=== PATIENT | female | born 1995 | race Two or more races ===

== ENCOUNTER 2017-01-15 15:49 | Emergency (ER) | payer SELFPAY ==
[~2017-01-15] VITALS: Ht 160 cm; Wt 113.4 kg
[2017-01-15 16:11] LABS: BILIRUBIN,URINE NEGATIVE (NEG); GLUCOSE,URINE NEGATIVE (NEG); NITRITE,URINE NEGATIVE (NEG); PROTEIN,URINE NEGATIVE (NEG-TRACE); UROBILINOGEN,URINE 0.2 mg/dL (0.2 mg/dL)
[2017-01-15 16:17] LABS: BACTERIA,URINE 0 /HPF (0-FEW); SQUAMOUS EPITHELIAL CELL,UR FEW /LPF; WBC,URINE 0 /HPF (0-4)
[2017-01-15 16:35] LABS: BASO % 0 % (0-3); EOS % 1 % (0-3); HEMATOCRIT 40.5 % (36.0-47.0); HEMOGLOBIN 13.5 g/dL (12.0-15.5); LYMPH # 2.5 x10^3/uL (1.0-4.8); LYMPH % 27 % (24-48); MEAN CORPUSCULAR HEMOGLOBIN 28 pg (25-35); MEAN CORPUSCULAR HGB CONC 33 g/dL (31-37); MEAN CORPUSCULAR VOLUME 85 fL (79-100); MONO % 4 % (0-9); NEUT % 68 % (31-73); PLATELET COUNT 262 x10^3/uL (140-400); RED BLOOD COUNT 4.79 x10^6/uL (3.50-5.40); RED CELL DISTRIBUTION WIDTH 14.3 % (11.5-14.5)
--- NOTE | 2017-01-15 16:52 | RAD ---
EXAM: Obstetric sonogram. HISTORY: Vaginal spotting. TECHNIQUE: Transabdominal and transvaginal imaging of the pelvis was performed. COMPARISON: None. FINDINGS: The uterus measures 9.5 x 4.5 x 5.4 cm. There is a single intrauterine gestational sac with yolk sac. The mean sac diameter is 1.06 cm, corresponding with a gestational age of 5 weeks and 6 days. The yolk sac is normal in size. No pole is seen. There is a subchorionic hematoma inferior to the gestational sac measuring 1.5 x 0.5 cm in maximum dimension. Right ovary is normal in size and demonstrates normal blood flow. The left ovary is obscured due to bowel gas. IMPRESSION: 1. Single intrauterine gestational sac with a mean sac diameter corresponding with a gestational age of 5 weeks and 6 days. No pole is seen. This can be due to early gestational age. Short-term follow-up can be performed to confirm viability. 2. Small subchorionic hematoma measuring 1.5 cm in maximum dimension. 3. Nonvisualization of the left ovary.
[2017-01-15 17:18] LABS: CREATININE 0.6 mg/dL (0.6-1.0); GFR 127.5; POTASSIUM 3.5 mmol/L (3.5-5.1)
[2017-01-15 17:24] LABS: ALBUMIN 3.5 g/dL (3.4-5.0); ALBUMIN/GLOBULIN RATIO 0.9 (1.0-1.7); TOTAL BILIRUBIN 0.9 mg/dL (0.2-1.0); TOTAL PROTEIN 7.2 g/dL (6.4-8.2)
--- NOTE | 2017-01-15 17:43 | PHYS DOC ---
Past Medical History Past Medical History: No Pertinent History Past Surgical History: No Surgical History Alcohol Use: None Drug Use: None Adult General Chief Complaint Chief Complaint: VAGINAL BLEEDING HPI HPI Patient is a 21 year old female who is 2 para 1. Severe today complaining of vaginal spotting for one week. Patient reports that she's been having vaginal spotting however today her spotting was slightly increased and darker in color so she came to the ER. Patient reports that she saw her TOY CONSULTANT doctor yesterday and he did an ultrasound and told her that it was a very early and he was not able to see a definite baby as of yet however there were signs of the baby in the uterus. She was told that her was approximately 5 weeks by her TOY CONSULTANT doctor. She has a follow-up scheduled in 2 weeks. Patient denies any other past medical history. Patient has any history of hypertension diabetes liver lumg or kidney problems. Patient denies any tobacco alcohol or drugs. Patient has no known drug allergies. Patient denies any abdominal pain whatsoever. Patient denies any fevers shakes chills nausea vomiting diarrhea that's out of the ordinary for her during her . Patient denies any dysuria frequency or urgency. Patient has any chest pain or shortness of breath. Patient reports that since she's been in the ER her bleeding has come back to its spotting that she had seen her doctor for. Patient reports that she has used less than one pad in the last 24 hours. Review of systems Constitutional: Denies fever or chills Eyes: Denies change in visual acuity, redness, or eye pain All other review systems are negative except as documented in the history of present illness portion. Physical exam Constitutional: Well developed, well nourished, no acute distress, non-toxic appearance. HENT: Normocephalic, atraumatic, bilateral external ears normal, oropharynx moist, no oral exudates, nose normal. Eyes: conjunctiva normal, no discharge. Neck: Normal range of motion, no tenderness, supple, no stridor. Cardiovascular:Heart rate regular rhythm, Lungs & Thorax: Bilateral breath sounds clear to auscultation Abdomen: Bowel sounds normal, soft, no tenderness, no masses, no pulsatile masses. Skin: Warm, dry, Back: No tenderness, Extremities: No tenderness, no cyanosis, Neurologic: Alert and oriented X 3, normal motor function, normal sensory function, no focal deficits noted. Psychologic: Affect normal, judgement normal, mood normal. Assessment and plan This is a 21-year-old female who presents to the ER today with vaginal bleeding. Patient is presently 5 weeks by ultrasound. Patient reports her last period was October 22, 2016. Patient reports that she had mother. Approximately November 17 that only lasted for 2 days. Patient is currently being followed up by her TOY CONSULTANT doctor and he is scheduled her for repeat ultrasound in 2 weeks. Patient had basic labs in the ED today which were all within normal limits. Patient's UA did not reveal any infections. Patient had an ultrasound today which revealed a possible early IUP approximately 5 weeks gestation however the possibility of an ectopic by ultrasound has not been completely excluded. This has been relayed to the patient. The patient is clinically and hemodynamically stable at this time to be discharged home with resuming her follow-up with her TOY CONSULTANT doctor as scheduled. Patient was given return precautions regarding increasing pain or vaginal bleeding. Patient understands and is very agreeable to this plan. CBC, CMP, UA, pelvic ultrasound all within normal limits. Patient is too early for Rh but she reports that she believes she is A+ and has not received RhoGAM in the past. Allergies Allergies Allergies Coded Allergies Type Severity Reaction Last Updated Verified No Known Drug Allergies 01/15/17 No Current Patient Data Vital Signs Vital Signs Date Time Temp Pulse Resp B/P (MAP) Pulse Ox O2 Delivery O2 Flow Rate FiO2 01/15/17 16:00 98.4 96 20 153/71 (98) 96 Room Air 98.4 Lab Values Laboratory Tests Test 01/15/17 15:58 01/15/17 16:05 01/15/17 16:28 Urine Collection Type Unknown Urine Color Yellow Urine Clarity Clear Urine pH 6.0 Urine Specific [place] 1.020 Urine Protein Negative mg/dL (NEG-TRACE) Urine Glucose (UA) Negative mg/dL (NEG) Urine Ketones (Stick) 15 mg/dL (NEG) Urine Blood Large (NEG) Urine Nitrite Negative (NEG) Urine Bilirubin Negative (NEG) Urine Urobilinogen Dipstick 0.2 mg/dL (0.2 mg/dL) Urine Leukocyte Esterase Negative (NEG) Urine RBC 3-5 /HPF (0-2) Urine WBC 0 /HPF (0-4) Urine Squamous Epithelial Cells Few /LPF Urine Bacteria 0 /HPF (0-FEW) Urine Mucus Mod /LPF POC Urine HCG, Qualitative Hcg positive (Negative) White Blood Count 9.0 x10^3/uL (4.0-11.0) Red Blood Count 4.79 x10^6/uL (3.50-5.40) Hemoglobin 13.5 g/dL (12.0-15.5) Hematocrit 40.5 % (36.0-47.0) Mean Corpuscular Volume 85 fL (79-100) Mean Corpuscular Hemoglobin 28 pg (25-35) Mean Corpuscular Hemoglobin Concent 33 g/dL (31-37) Red Cell Distribution Width 14.3 % (11.5-14.5) Platelet Count 262 x10^3/uL (140-400) Neutrophils (%) (Auto) 68 % (31-73) Lymphocytes (%) (Auto) 27 % (24-48) Monocytes (%) (Auto) 4 % (0-9) Eosinophils (%) (Auto) 1 % (0-3) Basophils (%) (Auto) 0 % (0-3) Neutrophils # (Auto) 6.1 x10^3uL (1.8-7.7) Lymphocytes # (Auto) 2.5 x10^3/uL (1.0-4.8) Monocytes # (Auto) 0.4 x10^3/uL (0.0-1.1) Eosinophils # (Auto) 0.1 x10^3/uL (0.0-0.7) Basophils # (Auto) 0.0 x10^3/uL (0.0-0.2) Sodium Level 139 mmol/L (136-145) Potassium Level 3.5 mmol/L (3.5-5.1) Chloride Level 103 mmol/L (98-107) Carbon Dioxide Level 26 mmol/L (21-32) Anion Gap 10 (6-14) Blood Urea Nitrogen 6 mg/dL (7-20) L Creatinine 0.6 mg/dL (0.6-1.0) Estimated GFR (Cockcroft-Gault) 127.5 BUN/Creatinine Ratio 10 (6-20) Glucose Level 91 mg/dL (70-99) Calcium Level 9.0 mg/dL (8.5-10.1) Total Bilirubin 0.9 mg/dL (0.2-1.0) Aspartate Amino Transferase (AST) 25 U/L (15-37) Alanine Aminotransferase (ALT) 51 U/L (14-59) Alkaline Phosphatase 74 U/L (46-116) Total Protein 7.2 g/dL (6.4-8.2) Albumin 3.5 g/dL (3.4-5.0) Albumin/Globulin Ratio 0.9 (1.0-1.7) L Laboratory Tests 01/15/17 16:28 Laboratory Tests 01/15/17 16:28 EKG EKG [] Radiology/Procedures Radiology/Procedures [] Course & Med Decision Making Course & Med Decision Making Pertinent Labs and Imaging studies reviewed. (See chart for details) [] Dragon Disclaimer Dragon Disclaimer This electronic medical record was generated, in whole or in part, using a voice recognition dictation system. Departure Departure Impression: Primary Impression: Vaginal bleeding in Additional Impression: Threatened miscarriage Disposition: 01 HOME, SELF-CARE Condition: IMPROVED Referrals: TESFAYE MICHAEL APRN (PCP) Patient Instructions: Threatened Miscarriage Additional Instructions: Please follow up with your TOY CONSULTANT doctor as discussed with him. Return to the ER if you have any questions concerns or increasing symptoms. Problem Qualifiers ROSALINDA CHAMBERS MD Jan 15, 2017 17:43
[2017-01-15 17:50] VITALS: BP 128/69
== END 2017-01-15 17:55 | disposition home or self-care (01) ==
LOC: ER 15:49
DX: O20.0 Threatened abortion (principal); Z3A.01 Less than 8 weeks gestation of pregnancy
CPT/HCPCS: 36415; 76801; 76817; 80053; 81001; 81025; 84702; 85025; 99285-25

== ENCOUNTER 2017-06-25 10:57 | Emergency (ER) | payer OTHER ==
[2017-06-25 11:15] LABS: URINE HCG POC HCG POSITIVE (Negative)
[2017-06-25 11:23] LABS: BILIRUBIN,URINE NEGATIVE (NEG); CLARITY,URINE CLEAR; COLOR,URINE YELLOW; GLUCOSE,URINE NEGATIVE (NEG); NITRITE,URINE NEGATIVE (NEG); PH,URINE 6.5; PROTEIN,URINE NEGATIVE (NEG-TRACE); UROBILINOGEN,URINE 0.2 mg/dL (0.2 mg/dL)
[2017-06-25 11:35] LABS: BACTERIA,URINE 0 /HPF (0-FEW); SQUAMOUS EPITHELIAL CELL,UR FEW /LPF; WBC,URINE 0 /HPF (0-4)
[2017-06-26 14:32] LABS: CHLAMYDIA PROBE Negative (Negative); GC PROBE Negative (Negative)
== END 2017-06-25 14:14 | disposition home or self-care (01) ==
LOC: ER 10:57
DX: O20.0 Threatened abortion (principal); Z3A.01 Less than 8 weeks gestation of pregnancy
CPT/HCPCS: 36415; 76801; 76817; 81001; 81025; 84702; 86850; 86900; 86901; 87491; 87591; 99285-25; Q0111

== ENCOUNTER → 2018-02-24 | Outpatient (CLI) | payer OTHER ==
[2017-06-25 14:13] VITALS: BP 170/84
[~2018-02-24] MED LIST: PREN1TAB58 PO
--- NOTE | 2018-02-24 17:03 | RAD ---
Obstetrical ultrasound, 02/24/2018: HISTORY: Uterine size/date discrepancy There is a single intrauterine fetus in a cephalic orientation. The biparietal diameter measures 4.3 cm compatible with a gestational age of 19 weeks. This corresponds well to the other measurements and yields an average gestational age of 19 weeks and 3 days and a sonographic EDC of 07/19/2018. Normal activity and heart motion were seen. The heart rate is 153 bpm. A four-chamber heart is evident. Fluid is evident in the bladder and stomach. The visualized portions of the kidneys and spine are unremarkable. A three-vessel umbilical cord is identified with a normal cord insertion site. The placenta lies posteriorly extending into the fundal region. There is no evidence of a placenta previa. A normal amount of amniotic fluid is evident. The cervical length was estimated at 5.0 cm. The maternal ovaries were not visualized. IMPRESSION: Single viable intrauterine fetus of 19-20 weeks gestational age as described above. Electronically signed by: Chris Irene MD (02/24/2018 5:00 PM) [facility]
== END | disposition home or self-care (01) ==
LOC: US 10:52
PROVIDERS: ATTEND Obstetrics & Gynecology
DX: O26.842 Uterine size-date discrepancy, second trimester (principal); Z3A.20 20 weeks gestation of pregnancy
CPT/HCPCS: 76805

== ENCOUNTER 2018-03-09 10:41 | Day surgery (SDC) | payer OTHER ==
[~2018-03-09] VITALS: Ht 160 cm; Wt 113.4 kg
[~2018-03-09 10:41] MED LIST changes: +ASPI-630 PO; +BUPIVACAINE MPF 0.5% 30 ML VIAL. ONE; +HYDR-3164 PO; +HYDROmorphone 2 MG/ML VIAL IV PRN; +IV RINGERS,LACTATED 1000ML 1,000 ML IV SCH; +LIDOCAINE 1% PF 2 ML VIAL. ID PRN; +LIDOCAINE 1% PF 30 ML VIAL. ONE; +MORPHINE SULFATE 2 MG/ML VIAL. IV PRN; +PROPOFOL 50 ML IV ONE; +fentaNYL PF VIAL 100 MCG/2 ML VIAL IV PRN; +fentaNYL PF VIAL 100 MCG/2 ML VIAL ONE
--- NOTE | 2018-03-09 11:10 | DISCH ---
DISCHARGE INSTRUCTIONS Condition on Discharge Condition on Discharge: Stable Activity After Discharge Activity Instructions for Disc: Activity as tolerated, Other, see below Bathing Instructions: Shower-keep dressing dry Lifting Instructions after Dis: No heavy lifting, No pulling or pushing, Do not lift >10 pounds Exercise Instruction after Dis: Walk 15 min, 3 x per day Driving Instructions after Dis: Do not drive today Weight Bearing Status after Di: Non weight bearing Diet after Discharge Diet after Discharge: Regular Wound Incision Care Wound/Incision Care: Ice to area for comfort, Keep wound/cast CDI, Keep wound elevated, Do not change dressing Contacting the DRMalachi after DC Call your doctor for: Concerns you may have Follow-Up Follow up with: Maurice in 2 wks Follow Up With: Darrell with any concerns Treatment/Equipment after DC Adaptive Equipment Issued: None JULISSA BLACK II, MD Mar 09, 2018 11:10
[2018-03-09] MEDS ORDERED: PROPOFOL 50 ML IV ONE (12:26)
--- NOTE | 2018-03-09 13:08 | PDOC4 ---
Operative Note Operative Note Date of procedure: 03/09/2018 Surgeon: Wesley Black Technical Program Manager: Estee Bhatia, certified technician specialist Preoperative diagnosis: #1 Closed, displaced, right ankle fracture dislocation #2 right ankle syndesmotic injury Postoperative diagnosis: Same Procedure performed: #1 open reduction internal fixation right distal fibula #2 open reduction internal fixation right syndesmotic injury Anesthesia: Spinal Tourniquet time: less than 70 min Blood loss: 10mL Complications: none Components inserted: Hoff [employer] Nephew 7 hole distal fibula locking plate, 3.5 screw for synesmotic fixation Findings: Acute ankle fracture and syndesmotic disruption Reason for procedure: Patient is a very pleasant young female who is 20 weeks . She suffered a twisting injury and was seen in an outside emergency department. She was referred to myself for definitive management. I discussed the risks, benefits, and alternatives, especially with focus on her , to the above surgery. I discussed her care with her mask design engineer as well as anesthesia prior to surgery. I reviewed her case with my colleague as well. She elected to proceed with surgery. Description of procedure: Patient was greeted in the preoperative area by myself for the correct extremity was verified and marked her to secure the operative suite and antibiotics started and row. Once in the OR she had successful placement of a spinal anesthetic by the anesthesiology team. She was then laid gently supine on the bed, had a padded under her right hip. Splint was taken down and chlorhexidine pre-scrub performed. She had a tourniquet taped in place to right upper thigh. We proceeded prep and drape right lower extremity in our usual sterile fashion and conducted our standard preoperative timeout. I then palpated and marked surface anatomy. I then made a straight lateral incision over her distal fibula centered over the fracture site. I incised skin with a scalpel and dissected subcutaneous tissues tissue with Metzenbaums. Bleeders were cauterized with electrocautery. Fascia was incised in line with the skin incision. I used a periosteal elevator to expose the fibula proximally and distally to the fracture site in anticipation my plate application. I debrided the fracture site with a small curet, metal-tip sucker and dental pick. I used a [id number] in and some direct digital pressure to facilitate reduction. I then checked my x-rays of ankle and syndesmosis. After this, I provisionally placed my plate against bone and sized and checked it under biplanar fluoroscopy. I then secured the plate to the bone with a nonlocking screw above and below the fracture site. I filled the remainder of the holes, using locking screws distally. I left a hole open in anticipation of syndesmotic fixation. I then studied this under fluoroscopy and performed an external rotation stress test. I then used a large periarticular clamp through a stab incision medially and against my plate to facilitate reduction and stabilization of the syndesmosis and placed a 3.5 mm screw across 4 cortices. After this, I checked images again I was happy with hardware position and fracture reduction. I then irrigated out the operative field thoroughly. I closed the stab incision medially with simple interrupted 3-0 nylon. #1 Vicryl in a simple and [id number] fashion was used to close fascia. I then reapproximated subcutaneous tissue with inverted interrupted 2-0 Vicryl followed by 3-0 nylon in a vertical mattress fashion for skin. I injected local anesthetic around the area. Prior to wound closure, all counts correct 2. The right lower extremity was cleansed and dried and a sterile dressing was applied to each side. A well-padded AO splint was then fashioned. Patient tolerated surgery well. At the conclusion, she was awakened from her sedation and transferred gently supine to the recovery room cart and taken to PACU in a stable and extubated condition. heart monitoring was performed. From my standpoint she will be discharged home, nonweightbearing, shell follow up with me in 2 weeks. I discussed postoperative care with her family and answered their questions. I will see her back in 2 weeks, sooner should a problem arise WESLEY BLACK II, MD Mar 09, 2018 13:08
[2018-03-09 16:40] VITALS: BP 131/59
== END 2018-03-09 17:00 | disposition home or self-care (01) ==
LOC: SURG 10:41
PROVIDERS: ATTEND Orthopaedic Surgery Sports Medicine
DX: S82.61XA Displaced fracture of lateral malleolus of right fibula, initial encounter for closed fracture (principal); S93.439A Sprain of tibiofibular ligament of unspecified ankle, initial encounter; X58.XXXA Exposure to other specified factors, initial encounter; Y93.89 Activity, other specified; Y92.89 Other specified places as the place of occurrence of the external cause; Y99.8 Other external cause status; E78.00 Pure hypercholesterolemia, unspecified; K21.9 Gastro-esophageal reflux disease without esophagitis; E66.9 Obesity, unspecified; E03.9 Hypothyroidism, unspecified; Z98.890 Other specified postprocedural states; Z79.899 Other long term (current) drug therapy; Z79.82 Long term (current) use of aspirin
CPT/HCPCS: 27792; 27829; 76000; C1713; J0690; J2704; J3010; J3490; J7120

== ENCOUNTER 2018-06-01 06:59 | Day surgery (SDC) | payer MEDICAID, OTHER ==
[~2018-06-01] VITALS: Ht 160 cm; Wt 117.9 kg
[~2018-06-01 06:59] MED LIST changes: -BUPIVACAINE MPF 0.5% 30 ML VIAL. ONE; -HYDROmorphone 2 MG/ML VIAL IV PRN; -IV RINGERS,LACTATED 1000ML 1,000 ML IV SCH; -LIDOCAINE 1% PF 2 ML VIAL. ID PRN; -LIDOCAINE 1% PF 30 ML VIAL. ONE; -MORPHINE SULFATE 2 MG/ML VIAL. IV PRN; -PROPOFOL 50 ML IV ONE; -fentaNYL PF VIAL 100 MCG/2 ML VIAL IV PRN; -fentaNYL PF VIAL 100 MCG/2 ML VIAL ONE
[2018-06-01] MEDS ORDERED: IV RINGERS,LACTATED 1000ML 1,000 ML IV SCH (07:00)
[2018-06-01] MEDS ORDERED: HYDROmorphone 2 MG/ML VIAL IV PRN (07:00)
[2018-06-01] MEDS ORDERED: ONDANSETRON PF 4 MG/2 ML VIAL. IV PRN (07:00)
[2018-06-01] MEDS ORDERED: fentaNYL PF VIAL 100 MCG/2 ML VIAL IV PRN ×2 (07:00)
[2018-06-01] MEDS ORDERED: MORPHINE SULFATE 4 MG/ML VIAL. IV PRN (07:00)
[2018-06-01] MEDS ORDERED: LIDOCAINE 1% PF 2 ML VIAL. ID PRN (07:00)
[2018-06-01] MEDS ORDERED: PROCHLORPERAZINE 10 MG/2 ML VIAL. IV PRN (07:00)
[2018-06-01] MEDS ORDERED: LIDOCAINE 1% PF 30 ML VIAL. ONE (07:09)
[2018-06-01] MEDS ORDERED: BUPIVACAINE MPF 0.5% 30 ML VIAL. ONE (07:10)
[2018-06-01] MEDS ORDERED: BUPIVACAINE MPF 0.75% DEXTROSE 2 ML AMPUL. INJ ONE (07:30)
[2018-06-01] MEDS ORDERED: 0.9 % SODIUM CHLORIDE 20 ML VIAL. IJ ONE (08:22)
[2018-06-01] MEDS ORDERED: ONDANSETRON PF 4 MG/2 ML VIAL. ONE (08:25)
[2018-06-01] MEDS ORDERED: FAMOTIDINE 20 MG/2 ML VIAL ONE (08:25)
--- NOTE | 2018-06-01 08:52 | DISCH ---
DISCHARGE INSTRUCTIONS Condition on Discharge Condition on Discharge: Stable Activity After Discharge Activity Instructions for Disc: Activity as tolerated, Other, see below Bathing Instructions: Shower-keep dressing dry Lifting Instructions after Dis: No heavy lifting, No pulling or pushing, Do not lift >10 pounds Exercise Instruction after Dis: Walk 15 min, 3 x per day Driving Instructions after Dis: Do not drive today Weight Bearing Status after Di: As tolerated, Non weight bearing Diet after Discharge Diet after Discharge: Regular Wound Incision Care Wound/Incision Care: Ice to area for comfort, Keep wound/cast CDI, Keep wound elevated, Change dressing, Do not change dressing Contacting the DRMalachi after DC Call your doctor for: Concerns you may have Follow-Up Follow up with: Maurice in 2 wks Follow Up With: Darrell for any concerns regarding movements/ Treatment/Equipment after DC Adaptive Equipment Issued: None JULISSA BLACK II, MD Jun 01, 2018 08:52
--- NOTE | 2018-06-01 08:53 | PDOC4 ---
Operative Note Operative Note Date of procedure: 06/01/2018 Surgeon: Wesley Sprague.: Estee Bhatia, certified tower climber, necessary to assist with positioning, prepping and draping, retracting for exposure, and closing wound. Preoperative diagnosis: Right ankle fracture status post ORIF Right ankle syndesmotic disruption, status post ORIF Postoperative diagnosis: Same Procedure performed: Removal syndesmotic screw from right ankle Anesthesia: Spinal Findings: Stable ankle to external rotation stress test Complications: none Blood loss: 2 mL Tourniquet time: 10 min Reason for procedure: Patient is a very pleasant third trimester woman who underwent ORIF of her right ankle fracture and syndesmotic disruption with myself about 3 months ago. We have discussed the risks, benefits, alternatives and discussed this procedure with her distributor cleaner. Description of procedure: Patient was greeted in the preoperative holding area by myself for the correct extremity was verified and marked. She is taken back to the operative suite where she had successful placement of a spinal anesthetic. She was laid gently supine and secured to bed with all pressure points padded. Prior to coming back to the operating room, labor and delivery nurses had monitored heart tones. Right lower extremity was then prepped and draped in our usual sterile fashion we conducted our standard preoperative timeout. Coban was used over the forefoot. I then exsanguinated the extremity and wrapped the tourniquet over a towel at the proximal calf and used a hemostat to limp to itself for a tourniquet effect. I then brought in C-arm to localize the location of the syndesmotic screw and made a stab incision overlying this. Electrocautery was used for hemostasis. Small hemostat was used to expose the screw head which was then removed without complication. The area was irrigated with sterile fluid.. Inverted interrupted 2-0 Vicryl was used for fascia and for subcutaneous tissue. 3-0 nylon in mattress fashion was used for skin. About 10 mL of local anesthetic was injected into the sadia-incisional area. The area was cleansed and dried and a sterile dressing was applied. The patient was then transferred gently supine to the recovery room cart and taken to PACU stable and extubated condition. The labor and delivery nurses were called down to perform heart monitoring. Postoperative plan is to allow weightbearing as tolerated. Wound care and activity were given and written form and discussed with family. She will be discharged home, weightbearing as tolerated. I will see her back in 2 weeks, sooner should a problem arise. WESLEY BLACK II, MD Jun 01, 2018 08:53
[2018-06-01 11:50] VITALS: BP 110/64
== END 2018-06-01 11:50 | disposition home or self-care (01) ==
LOC: SURG 06:59
PROVIDERS: ATTEND Orthopaedic Surgery Sports Medicine
DX: O26.893 Other specified pregnancy related conditions, third trimester (principal); Z47.2 Encounter for removal of internal fixation device; O99.283 Endocrine, nutritional and metabolic diseases complicating pregnancy, third trimester; E03.9 Hypothyroidism, unspecified; E78.5 Hyperlipidemia, unspecified; Z98.890 Other specified postprocedural states; Z79.82 Long term (current) use of aspirin; Z79.899 Other long term (current) drug therapy; Z3A.42 42 weeks gestation of pregnancy
CPT/HCPCS: 20680; 76000; J0690; J2405; J3490; J7120

== ENCOUNTER 2018-06-02 19:53 | Observation (INO) | payer OTHER ==
[2018-06-01 11:50] VITALS: BP 110/64
[2018-06-02] MEDS ORDERED: IV RINGERS,LACTATED 1000ML 1,000 ML IV SCH (19:55)
[2018-06-02 20:29] LABS: BILIRUBIN,URINE NEGATIVE (NEG); CLARITY,URINE CLEAR; COLOR,URINE YELLOW; NITRITE,URINE NEGATIVE (NEG); PROTEIN,URINE NEGATIVE (NEG-TRACE); UROBILINOGEN,URINE 0.2 mg/dL (0.2 mg/dL)
[2018-06-02 20:36] LABS: BACTERIA,URINE 0 /HPF (0-FEW); BARBITURATES NEG (NEG); BENZODIAZEPINES NEG (NEG); CANNABINOIDS NEG (NEG); COCAINE NEG (NEG); METHADONE NEG (NEG); OPIATES NEG (NEG); PHENCYCLIDINE NEG (NEG); SQUAMOUS EPITHELIAL CELL,UR MOD /LPF
[2018-06-02 20:37] LABS: AMPHETAMINE/METHAMPHETAMINE NEG (NEG); RBC,URINE 0 /HPF (0-2)
== END 2018-06-02 21:00 | disposition home or self-care (01) ==
LOC: 3 SO LND 19:53
PROVIDERS: ADMIT Obstetrics & Gynecology; ATTEND Obstetrics & Gynecology
DX: O62.9 Abnormality of forces of labor, unspecified (principal); Z3A.33 33 weeks gestation of pregnancy
CPT/HCPCS: 80307; 81001; G0379

== ENCOUNTER 2018-06-26 19:09 | Observation (INO) | payer MEDICAID ==
[2018-06-26] MEDS ORDERED: IV RINGERS,LACTATED 1000ML 1,000 ML IV PRN (19:30)
[2018-06-26 20:20] LABS: BILIRUBIN,URINE NEGATIVE (NEG); CLARITY,URINE CLEAR; COLOR,URINE YELLOW; NITRITE,URINE NEGATIVE (NEG); PROTEIN,URINE NEGATIVE (NEG-TRACE)
[2018-06-26 20:25] LABS: BACTERIA,URINE 0 /HPF (0-FEW); RBC,URINE 0 /HPF (0-2); SQUAMOUS EPITHELIAL CELL,UR FEW /LPF; WBC,URINE OCC /HPF (0-4)
[2018-06-26 20:27] LABS: AMPHETAMINE/METHAMPHETAMINE NEG (NEG); BARBITURATES NEG (NEG); BENZODIAZEPINES NEG (NEG); CANNABINOIDS NEG (NEG); COCAINE NEG (NEG); METHADONE NEG (NEG); OPIATES NEG (NEG); PHENCYCLIDINE NEG (NEG)
== END 2018-06-26 21:15 | disposition home or self-care (01) ==
LOC: 3 SO LND 19:09
PROVIDERS: ADMIT Obstetrics & Gynecology; ATTEND Obstetrics & Gynecology
DX: O36.8130 Decreased fetal movements, third trimester, not applicable or unspecified (principal); Z3A.36 36 weeks gestation of pregnancy
CPT/HCPCS: 80307; 81001; 87086; G0378; G0379

== ENCOUNTER 2018-07-08 16:24 | Observation (INO) | payer OTHER ==
[~2018-07-08] VITALS: Ht 160 cm; Wt 125.2 kg
[2018-07-08] MEDS ORDERED: IV RINGERS,LACTATED 1000ML 1,000 ML IV SCH (17:15)
[2018-07-08 17:19] LABS: BILIRUBIN,URINE NEGATIVE (NEG); CLARITY,URINE CLEAR; COLOR,URINE YELLOW; NITRITE,URINE NEGATIVE (NEG); PROTEIN,URINE NEGATIVE (NEG-TRACE); UROBILINOGEN,URINE 0.2 mg/dL (0.2 mg/dL)
[2018-07-08 17:28] LABS: BACTERIA,URINE FEW /HPF (0-FEW); RBC,URINE 0 /HPF (0-2); SQUAMOUS EPITHELIAL CELL,UR MOD /LPF; WBC,URINE 0 /HPF (0-4)
== END 2018-07-08 19:45 | disposition home or self-care (01) ==
LOC: 3 SO LND 16:24
PROVIDERS: ADMIT Obstetrics & Gynecology; ATTEND Obstetrics & Gynecology
DX: O62.9 Abnormality of forces of labor, unspecified (principal); Z3A.38 38 weeks gestation of pregnancy
CPT/HCPCS: 81001; G0378; G0379

== ENCOUNTER 2018-07-10 11:25 | Inpatient (IN) | payer OTHER ==
[~2018-07-10] VITALS: Ht 161.3 cm; Wt 125.2 kg
[2018-07-10] MEDS ORDERED: IV RINGERS,LACTATED 1000ML 1,000 ML IV SCH ×2 (12:06→15:04)
[2018-07-10 12:30] LABS: BILIRUBIN,URINE NEGATIVE (NEG); CLARITY,URINE CLEAR; COLOR,URINE YELLOW; NITRITE,URINE NEGATIVE (NEG); PROTEIN,URINE NEGATIVE (NEG-TRACE)
[2018-07-10 12:43] LABS: BACTERIA,URINE 0 /HPF (0-FEW); RBC,URINE 0 /HPF (0-2); SQUAMOUS EPITHELIAL CELL,UR MOD /LPF; WBC,URINE OCC /HPF (0-4)
[2018-07-10] MEDS ORDERED: ONDANSETRON PF 4 MG/2 ML VIAL. IV PRN ×2 (15:15→18:45)
[2018-07-10] MEDS ORDERED: TERBUTALINE 1 MG/ML VIAL. SQ PRN (15:15)
[2018-07-10] MEDS ORDERED: OXYTOCIN 30 UNIT/500 ML PREMIX 500 ML IV PRN ×2 (15:15)
[2018-07-10] MEDS ORDERED: 0.9 % SODIUM CHLORIDE 10 ML DISP.SYRIN. IV PRN (15:15)
[2018-07-10] MEDS ORDERED: LIDOCAINE 1% PF 30 ML VIAL. INJ PRN (15:15)
[2018-07-10] MEDS ORDERED: fentaNYL PF VIAL 100 MCG/2 ML VIAL IV PRN (15:15)
[2018-07-10] MEDS ORDERED: ACETAMINOPHEN 325 MG TABLET. PO PRN (15:15)
--- NOTE | 2018-07-10 15:27 | PDOC1 ---
OB - History Hx of Present Care: Good Care Ultrasounds: Normal mid trimester US Obstetrical Complications: None Medical Complications: None Past Family/Social History * Past Medical, Surgical, Family and Obstetric Histories reviewed from chart. Rubella: Immune RPR/VDRL: Negative GBS Status: Negative HBsAG: Negative OB - Chief Complaint & HPI Date of Admission: Date of Admission: Jul 10, 2018 at 11:25 Chief Complaint/History : 3 Para: 1 EGA: 38 Reason for admission: active labor Admission Nurse Assessment Rev: Yes OB - Admission Exam Physical Exam HEENT: Normal Heart: Regular Rate Lungs: Clear Abdomen: Gravid, Non tender, Soft Extremities: Edema Reflexes: Normal Cervical Dilatation: 3cm Effacement: 75% Station: -3 Membranes: Intact Heart Rate: Normal Accelerations: Accelerations Present Decelerations: No decelerations Contractions on Admission: < 5 Minutes Apart Intensity: Moderate Text A: 38 wks IUP Active labor P: Admit for labor management. RISHI HURST Jr, MD Jul 10, 2018 15:27
[2018-07-10 15:57] LABS: BASO % 0 % (0-3); EOS % 0 % (0-3); HEMATOCRIT 35.8 % (36.0-47.0); HEMOGLOBIN 12.1 g/dL (12.0-15.5); LYMPH # 1.8 x10^3/uL (1.0-4.8); LYMPH % 17 % (24-48); MEAN CORPUSCULAR HEMOGLOBIN 30 pg (25-35); MEAN CORPUSCULAR HGB CONC 34 g/dL (31-37); MEAN CORPUSCULAR VOLUME 89 fL (79-100); MONO # 0.3 x10^3/uL (0.0-1.1); MONO % 3 % (0-9); NEUT # 8.5 x10^3uL (1.8-7.7); NEUT % 80 % (31-73); PLATELET COUNT 252 x10^3/uL (140-400); RED BLOOD COUNT 4.01 x10^6/uL (3.50-5.40); RED CELL DISTRIBUTION WIDTH 13.9 % (11.5-14.5); WHITE BLOOD COUNT 10.7 x10^3/uL (4.0-11.0)
[2018-07-10 17:34] VITALS: BP 121/71
[2018-07-10] MEDS ORDERED: ROPIVacaine 0.2% PF 10 ML VIAL. ONE ×2 (18:43→19:00)
[2018-07-10] MEDS ORDERED: ePHEDrine PF IN SALINE 50 MG/10 ML SYRINGE. IV PRN (18:45)
[2018-07-10] MEDS ORDERED: fentaNYL PF VIAL 100 MCG/2 ML VIAL EPI ONE (18:45)
[2018-07-10] MEDS ORDERED: NALOXONE 0.4 MG/ML VIAL. IV PRN (18:45)
[2018-07-10] MEDS: L&D EPIDURAL SYRINGE 50 ML EPID PRN ×2 (19:14→21:57)
--- NOTE | 2018-07-11 00:06 | PDOC ---
VAGINAL DELIVERY DATE DATE: 07/11/18 TIME: 00:05 : 3 Para: 2 EGA: 38 VAGINAL DELIVERY: VTX VACCUM ASSISTED: No PLACENTA: Spontaneous 12/28 SEX: Female WEIGHT Weight [ 2655 gm] Nuchal Cord: Yes, Times 1 Amniotic Fluid: Clear PAIN: Epidural EPISIOTOMY: No EXTENSION: No EBL 300 ml COMPLICATIONS none CONDITION pt. stable Signs of Intrauterine Infectio: None Shoulder Dystocia: No RISHI HURST Jr, MD Jul 11, 2018 00:06
[2018-07-11] MEDS ORDERED: ACETAMINOPHEN 325 MG TABLET. PO PRN (00:15)
[2018-07-11] MEDS ORDERED: MAG HYDROX/ALUMINUM HYD/SIMETH 30 ML ORAL.SUSP PO PRN (00:15)
[2018-07-11] MEDS ORDERED: PHENYLEPH/MINERAL OIL/PETROLAT RECTAL OINTMENT 28GM TUBE. RC PRN (00:15)
[2018-07-11] MEDS ORDERED: ZOLPIDEM 5 MG TABLET. PO PRN (00:15)
[2018-07-11] MEDS ORDERED: MAGNESIUM HYDROXIDE 2,400 MG/30 ML ORAL.SUSP. PO PRN (00:15)
[2018-07-11] MEDS ORDERED: diphenhydrAMINE HCL 25 MG CAPSULE PO PRN (00:15)
[2018-07-11] MEDS ORDERED: oxyCODONE/APAP 5/325 1 TAB TABLET PO PRN (00:15)
[2018-07-11] MEDS ORDERED: HYDROCORTISONE 1% TOPICAL OINTMENT 30GM TUBE. TP PRN (00:15)
[2018-07-11] MEDS ORDERED: 0.9 % SODIUM CHLORIDE 10 ML DISP.SYRIN. IV PRN (00:15)
[2018-07-11] MEDS ORDERED: BENZOCAINE 20% TOPICAL AEROSOL SPRAY 57GM CAN. TP PRN (00:15)
[2018-07-11] MEDS ORDERED: OXYTOCIN 30 UNIT/500 ML PREMIX 500 ML IV PRN (00:15)
[2018-07-11] MEDS ORDERED: MMR per PROTOCOL. MC PRN (00:15)
[2018-07-11] MEDS ORDERED: SIMETHICONE 80 MG TAB.CHEW PO PRN (00:15)
[2018-07-11] MEDS: DOCUSATE SODIUM 100 MG CAPSULE. PO PRN (08:13)
[2018-07-11] MEDS: IBUPROFEN 400 MG TABLET. PO PRN ×2 (08:13→21:18)
[2018-07-11 13:00] VITALS: BP 121/68
[2018-07-11 13:57] VITALS: BP 113/71
--- NOTE | 2018-07-11 16:14 | PDOC ---
OB Progress Note Date of Service 07/11/18 Time of Evaluation 1610 Notes Pt. feeling well. Pain controlled. No complaints. Lab Laboratory Tests Test 07/10/18 12:00 07/10/18 15:20 Urine Collection Type Unknown Urine Color Yellow Urine Clarity Clear Urine pH 7.0 Urine Specific [place] 1.015 Urine Protein Negative mg/dL (NEG-TRACE) Urine Glucose (UA) Negative mg/dL (NEG) Urine Ketones (Stick) Negative mg/dL (NEG) Urine Blood Negative (NEG) Urine Nitrite Negative (NEG) Urine Bilirubin Negative (NEG) Urine Urobilinogen Dipstick 1.0 mg/dL (0.2 mg/dL) Urine Leukocyte Esterase Small (NEG) Urine RBC 0 /HPF (0-2) Urine WBC Occ /HPF (0-4) Urine Squamous Epithelial Cells Mod /LPF Urine Bacteria 0 /HPF (0-FEW) Urine Mucus Slight /LPF White Blood Count 10.7 x10^3/uL (4.0-11.0) Red Blood Count 4.01 x10^6/uL (3.50-5.40) Hemoglobin 12.1 g/dL (12.0-15.5) Hematocrit 35.8 % (36.0-47.0) Mean Corpuscular Volume 89 fL (79-100) Mean Corpuscular Hemoglobin 30 pg (25-35) Mean Corpuscular Hemoglobin Concent 34 g/dL (31-37) Red Cell Distribution Width 13.9 % (11.5-14.5) Platelet Count 252 x10^3/uL (140-400) Neutrophils (%) (Auto) 80 % (31-73) Lymphocytes (%) (Auto) 17 % (24-48) Monocytes (%) (Auto) 3 % (0-9) Eosinophils (%) (Auto) 0 % (0-3) Basophils (%) (Auto) 0 % (0-3) Neutrophils # (Auto) 8.5 x10^3uL (1.8-7.7) Lymphocytes # (Auto) 1.8 x10^3/uL (1.0-4.8) Monocytes # (Auto) 0.3 x10^3/uL (0.0-1.1) Eosinophils # (Auto) 0.0 x10^3/uL (0.0-0.7) Basophils # (Auto) 0.0 x10^3/uL (0.0-0.2) Treponema pallidum Antibody Nonreactive (Nonreactive) Medications Current Medications Ringer's Solution 1,000 ml @ 125 mls/hr Q8H IV Last administered on 07/10/18at 17:46; Start 07/10/18 at 12:06 Sodium Chloride (Normal Saline Flush) 3 ml QSHIFT PRN IV AFTER MEDS AND BLOOD DRAWS; Start 07/10/18 at 15:15 Ringer's Solution 1,000 ml @ 125 mls/hr Q8H IV Last administered on 07/10/18at 19:15; Start 07/10/18 at 15:04 Fentanyl Citrate (Fentanyl 2ml Vial) 100 mcg PRN Q30MIN PRN IV Severe pain; Start 07/10/18 at 15:15 Acetaminophen (Tylenol) 650 mg PRN Q6HRS PRN PO MILD PAIN / TEMP; Start at 15:15 Ondansetron HCl (Zofran) 4 mg PRN Q4HRS PRN IV NAUSEA/VOMITING; Start 07/10/18 at 15:15 Terbutaline Sulfate (Brethine) 0.25 mg 1X PRN PRN SQ SEE COMMENTS; Start at 15:15; Stop 07/11/18 at 15:14; Status DC Lidocaine HCl (Xylocaine 1% Pf 30ml Vial) 30 ml 1X PRN PRN INJ SEE COMMENTS; Start 07/10/18 at 15:15; Stop 07/12/18 at 15:14 Oxytocin/Sodium Chloride 500 ml @ 0 mls/hr CONT PRN IV SEE I/O RECORD Last administered on 07/10/18at 20:15; Start 07/10/18 at 15:15 Oxytocin/Sodium Chloride 500 ml @ 0 mls/hr CONT PRN PRN IV Post delivery bleeding; Start 07/10/18 at 15:15 Ephedrine Sulfate (ePHEDrine PF IN SALINE SYRINGE) 10 mg PRN Q2MIN PRN IV IF SBP<90; Start 07/10/18 at 18:45 Naloxone HCl (Narcan) 0.04 mg PRN Q1MIN PRN IV SEE COMMENTS; Start 07/10/18 at 18:45 Fentanyl Citrate (Fentanyl 2ml Vial) 100 mcg 1X ONCE EPI Last administered on 07/10/18at 19:14; Start 07/10/18 at 18:45; Stop 07/10/18 at 18:51; Status DC Ropivacaine/ Fentanyl/NS 50 ml @ 14 mls/hr CONT PRN EPID PAIN Last administered on 07/10/18at 21:57; Start 07/10/18 at 18:45 Ondansetron HCl (Zofran) 4 mg PRN Q6HRS PRN IV NAUSEA/VOMITING; Start 07/10/18 at 18:45; Status UNV Ropivacaine (Naropin 0.2%) 10 ml STK-MED ONCE .ROUTE ; Start 07/10/18 at 18:43; Stop 07/10/18 at 18:44; Status DC Sodium Chloride (Normal Saline Flush) 10 ml QSHIFT PRN IV AFTER MEDS AND BLOOD DRAWS; Start 07/11/18 at 00:15 Oxytocin/Sodium Chloride 500 ml @ 62.5 mls/hr CONT PRN IV SEE I/O RECORD; Start 07/11/18 at 00:15; Stop 07/11/18 at 08:14; Status DC Acetaminophen (Tylenol) 650 mg PRN Q6HRS PRN PO MILD PAIN / TEMP; Start at 00:15 Ibuprofen (Motrin) 800 mg PRN Q8HRS PRN PO INFLAMMATION/PAIN PREVENTION Last administered on 07/11/18at 08:13; Start 07/11/18 at 00:15 Docusate Sodium (Colace) 100 mg PRN BID PRN PO CONSTIPATION Last administered on 07/11/18at 08:13; Start 07/11/18 at 00:15 Magnesium Hydroxide (Milk Of Magnesia) 2,400 mg PRN DAILY PRN PO CONSTIPATION; Start 07/11/18 at 00:15 Al Hydroxide/Mg Hydroxide (Mylanta Plus Xs) 30 ml PRN Q4HRS PRN PO HEARTBURN / GAS; Start 07/11/18 at 00:15 Simethicone (Gas-X) 80 mg PRN AFTMEALHC PRN PO GAS / BLOATING; Start 07/11/18 at 00:15 Diphenhydramine HCl (Benadryl) 25 mg PRN Q6HRS PRN PO ITCHING; Start 07/11/18 at 00:15 Benzocaine (Americaine) 1 spray PRN QID PRN TP TOPICAL PAIN; Start 07/11/18 at 00:15 Phenyleph/Shark Oil/Min Oil/Petrol (Preparation H) 1 afua PRN QID PRN RC RECTAL PAIN; Start 07/11/18 at 00:15 Hydrocortisone (Cortaid) 1 afua PRN QID PRN TP PERINEAL PAIN; Start 07/11/18 at 00:15 Ferrous Sulfate (Feosol) 325 mg BIDWMEALS PO ; Start 07/12/18 at 08:00 Zolpidem Tartrate (Ambien) 5 mg PRN QHS PRN PO INSOMNIA, MAY REPEAT X1; Start 07/11/18 at 00:15 Info (Do NOT chart on this placeholder) 1 ea 1X PRN PRN MC SEE COMMENTS; Start 07/11/18 at 00:15 Info (Do NOT chart on this placeholder) 1 ea 1X PRN PRN MC SEE COMMENTS; Start 07/11/18 at 00:15 Oxycodone/ Acetaminophen (Percocet 5/325) 2 tab PRN Q4HRS PRN PO MODERATE PAIN , SEVERE PAIN; Start 07/11/18 at 00:15 Active Scripts Active Vitamins ( Vits W-Ca,Fe,Fa(<1MG)) 1 Each Tablet 1 Tab PO DAILY Reported Aspirin 81 Mg Tab.chew 1 Tab PO DAILY Exam Abd: soft, non tender, fundus firm Assessment PPD#1 s/p Plan of Care: Continue current Tx, Mgmt RISHI HURST Jr, MD Jul 11, 2018 16:14
[2018-07-11 21:15] VITALS: BP 115/72
[2018-07-12 06:24] VITALS: BP 116/80
[2018-07-12 07:12] LABS: BASO # 0.1 x10^3/uL (0.0-0.2); BASO % 1 % (0-3); EOS # 0.1 x10^3/uL (0.0-0.7); EOS % 1 % (0-3); HEMATOCRIT 36.2 % (36.0-47.0); HEMOGLOBIN 12.1 g/dL (12.0-15.5); LYMPH # 2.1 x10^3/uL (1.0-4.8); LYMPH % 22 % (24-48); MEAN CORPUSCULAR HEMOGLOBIN 30 pg (25-35); MEAN CORPUSCULAR HGB CONC 33 g/dL (31-37); MEAN CORPUSCULAR VOLUME 91 fL (79-100); MONO # 0.5 x10^3/uL (0.0-1.1); MONO % 5 % (0-9); NEUT # 6.8 x10^3uL (1.8-7.7); NEUT % 71 % (31-73); PLATELET COUNT 251 x10^3/uL (140-400); RED BLOOD COUNT 3.99 x10^6/uL (3.50-5.40); RED CELL DISTRIBUTION WIDTH 13.7 % (11.5-14.5); WHITE BLOOD COUNT 9.6 x10^3/uL (4.0-11.0)
[2018-07-12] MEDS ORDERED: FERROUS SULFATE 325 MG TABLET. PO SCH (08:00)
[2018-07-12] MEDS: DOCUSATE SODIUM 100 MG CAPSULE. PO PRN (08:24)
[2018-07-12] MEDS: IBUPROFEN 400 MG TABLET. PO PRN (08:24)
--- NOTE | 2018-07-12 13:03 | PDOC3 ---
OB DISCHARGE SUMMARY DATE OF ADMISSION: 07/10/18 DATE OF DISCHARGE: 07/12/18 REASON FOR ADMISSION: Onset of labor INTRAPARTUM PROCEDURES: Spontanous Vag Deliv DISCHARGE DIAGNOSIS: Term Delivered DISCHARGE INFORMATION: Activity (ad munira), Diet (regular), Instructions (pelvic rest x 6 wks) HOSPITAL COURSE Term gestation delivered vaginally without complications. RISHI HURST Jr, MD Jul 12, 2018 13:03
--- NOTE | 2018-07-12 13:04 | DISCH ---
DISCHARGE INSTRUCTIONS Condition on Discharge Condition on Discharge: Stable Activity After Discharge Activity Instructions for Disc: Activity as tolerated, Other, see below Bathing Instructions: Shower-keep dressing dry Lifting Instructions after Dis: No heavy lifting, No pulling or pushing, Do not lift >10 pounds Exercise Instruction after Dis: Walk 15 min, 3 x per day Driving Instructions after Dis: Do not drive today Weight Bearing Status after Di: As tolerated, Non weight bearing Diet after Discharge Diet after Discharge: Regular Wound Incision Care Wound/Incision Care: Ice to area for comfort, Keep wound/cast CDI, Keep wound elevated, Change dressing, Do not change dressing Contacting the DRMalachi after DC Call your doctor for: Concerns you may have Follow-Up Follow up with: Dr. Ramírez in 6 wks. Treatment/Equipment after DC Adaptive Equipment Issued: None RISHI RAMÍREZ Jr, MD Jul 12, 2018 13:04
[2018-07-12] MEDS ORDERED: IBUP-1027 PO (13:05)
[2018-07-12 13:33] VITALS: BP 115/72
== END 2018-07-12 14:27 | disposition home or self-care (01) | DRG 807 ==
LOC: 3 SO LND 11:25 → OBSVTOIN 11:25
PROVIDERS: ADMIT Obstetrics & Gynecology; ATTEND Obstetrics & Gynecology
PROC: 10E0XZZ Delivery of Products of Conception, External Approach (ICD-10-PCS; principal; 2018-07-10)
PROC: 3E0R3BZ Introduction of Anesthetic Agent into Spinal Canal, Percutaneous Approach (ICD-10-PCS; 2018-07-10)
PROC: 3E0R33Z Introduction of Anti-inflammatory into Spinal Canal, Percutaneous Approach (ICD-10-PCS; 2018-07-10)
DX: O69.81X0 Labor and delivery complicated by cord around neck, without compression, not applicable or unspecified (principal); Z37.0 Single live birth; Z3A.38 38 weeks gestation of pregnancy
CPT/HCPCS: 36415; 81001; 85025; 86592; 86850; 86900; 86901; 87086; J2590; J2795; J3010; J7120

== ENCOUNTER → 2019-05-11 | Outpatient (CLI) | payer OTHER ==
[~2019-05-11] MED LIST changes: +IBUP-1027 PO
--- NOTE | 2019-05-12 09:20 | RAD ---
Examination: PREG MORE THAN OR EQ TO 14 WKS History: Uterine size discrepancy Comparison/Correlation: None Findings: Transabdominal ultrasound examination was performed. Exam is limited due to patient body habitus. Single intrauterine gestation with breech lie noted. Placenta is present at the posterior wall fundal level. movement noted. Heart rate is 144 bpm. Three-vessel cord noted. brain, kidneys, spine, and cord insertion are not well delineated due to patient body habitus. Normal quantity of amniotic fluid is present. Amniotic fluid index of 10.9 cm noted. Biparietal diameter is 4.3 cm corresponding to 19 weeks 0 day. History symptoms of 16.59 cm corresponding to 19 weeks 2 days. Abdominal circumference is 14.15 cm corresponding to 19 weeks 4 days. Femur length is 3.17 cm corresponding to 19 weeks 6 days. Head circumference to abdominal circumference ratio is 1.17. Estimated weight is 303 g. Average ultrasound age of 19 weeks 3 days is evident with ultrasound EDC of 10/02/2019. Maternal cervical length is 6.02 cm. Impression: Single living intrauterine gestation with average ultrasound age of 19 weeks 3 days. This is one week greater than clinical age. Breech lie. Electronically signed by: Benitez Whaley MD (05/12/2019 9:18 AM) [facility]
== END | disposition home or self-care (01) ==
LOC: US 13:51
PROVIDERS: ATTEND Obstetrics & Gynecology
DX: O32.1XX0 Maternal care for breech presentation, not applicable or unspecified (principal); Z3A.19 19 weeks gestation of pregnancy
CPT/HCPCS: 76805

== ENCOUNTER 2019-08-30 17:43 | Observation (INO) | payer OTHER ==
[2019-08-30] MEDS ORDERED: IV RINGERS,LACTATED 1000ML 1,000 ML IV SCH (18:25)
[2019-08-30 18:47] LABS: BILIRUBIN,URINE NEGATIVE (NEG); CLARITY,URINE CLEAR; COLOR,URINE YELLOW; NITRITE,URINE NEGATIVE (NEG); PROTEIN,URINE NEGATIVE (NEG-TRACE); UROBILINOGEN,URINE 0.2 mg/dL (0.2 mg/dL)
[2019-08-30 18:48] LABS: BACTERIA,URINE FEW /HPF (0-FEW); RBC,URINE 0 /HPF (0-2); SQUAMOUS EPITHELIAL CELL,UR MOD /LPF; WBC,URINE OCC /HPF (0-4)
== END 2019-08-30 19:00 | disposition home or self-care (01) ==
LOC: 3 SO LND 17:43
PROVIDERS: ADMIT Obstetrics & Gynecology; ATTEND Obstetrics & Gynecology
DX: O36.8130 Decreased fetal movements, third trimester, not applicable or unspecified (principal); Z3A.35 35 weeks gestation of pregnancy
CPT/HCPCS: 81001; G0378; G0379; 59025

== ENCOUNTER 2019-09-13 00:01 | Observation (INO) | payer OTHER ==
[2019-09-13] MEDS ORDERED: ACETAMINOPHEN 325 MG TABLET. PO PRN (00:15)
[2019-09-13 00:41] LABS: BILIRUBIN,URINE NEGATIVE (NEG); CLARITY,URINE CLEAR; COLOR,URINE YELLOW; NITRITE,URINE NEGATIVE (NEG); PH,URINE 6.5 (<5.0-8.0); PROTEIN,URINE NEGATIVE (NEG-TRACE); UROBILINOGEN,URINE 0.2 mg/dL (0.2 mg/dL)
[2019-09-13 00:51] LABS: BACTERIA,URINE FEW /HPF (0-FEW); RBC,URINE OCC /HPF (0-2); SQUAMOUS EPITHELIAL CELL,UR MOD /LPF; WBC,URINE OCC /HPF (0-4)
== END 2019-09-13 01:40 | disposition home or self-care (01) ==
LOC: 3 SO LND 00:01
PROVIDERS: ADMIT Obstetrics & Gynecology; ATTEND Obstetrics & Gynecology
DX: O62.9 Abnormality of forces of labor, unspecified (principal); Z3A.37 37 weeks gestation of pregnancy
CPT/HCPCS: 81001; G0378; G0379

== ENCOUNTER 2019-09-14 14:28 | Observation (INO) | payer OTHER ==
[2019-09-14] MEDS ORDERED: IV RINGERS,LACTATED 1000ML 1,000 ML IV PRN (15:00)
== END 2019-09-14 16:31 | disposition home or self-care (01) ==
LOC: 3 SO LND 14:28
PROVIDERS: ADMIT Obstetrics & Gynecology; ATTEND Obstetrics & Gynecology
DX: O62.9 Abnormality of forces of labor, unspecified (principal); Z3A.37 37 weeks gestation of pregnancy
CPT/HCPCS: G0378; G0379

== ENCOUNTER 2019-09-17 00:54 | Observation (INO) | payer OTHER ==
[2019-09-17] MEDS ORDERED: ACETAMINOPHEN 325 MG TABLET. PO PRN (01:15)
[2019-09-17] MEDS ORDERED: ONDANSETRON PF 4 MG/2 ML VIAL. IVP PRN (01:15)
[2019-09-17] MEDS ORDERED: IV RINGERS,LACTATED 1000ML 1,000 ML IV SCH (01:15)
[2019-09-17 02:03] LABS: BILIRUBIN,URINE NEGATIVE (NEG); CLARITY,URINE CLEAR; COLOR,URINE YELLOW; NITRITE,URINE NEGATIVE (NEG); PROTEIN,URINE NEGATIVE (NEG-TRACE); UROBILINOGEN,URINE 0.2 mg/dL (0.2 mg/dL)
[2019-09-17 02:08] LABS: BACTERIA,URINE FEW /HPF (0-FEW); RBC,URINE 0 /HPF (0-2); SQUAMOUS EPITHELIAL CELL,UR MOD /LPF; WBC,URINE OCC /HPF (0-4)
== END 2019-09-17 03:10 | disposition home or self-care (01) ==
LOC: 3 SO LND 00:54
PROVIDERS: ADMIT Obstetrics & Gynecology; ATTEND Obstetrics & Gynecology
DX: O62.9 Abnormality of forces of labor, unspecified (principal); O26.893 Other specified pregnancy related conditions, third trimester; R11.0 Nausea; Z3A.37 37 weeks gestation of pregnancy
CPT/HCPCS: 81001; G0378; G0379

== ENCOUNTER → 2019-09-25 | Outpatient (CLI) | payer OTHER | END | disposition home or self-care (01) | LOC: LAB 15:21 | PROVIDERS: ATTEND Obstetrics & Gynecology | DX: Z11.59 Encounter for screening for other viral diseases (principal) | CPT/HCPCS: 36415; U0003 ==

== ENCOUNTER 2019-09-28 05:59 | Inpatient (IN) | payer OTHER ==
[~2019-09-28] VITALS: Ht 160 cm; Wt 127.0 kg
[2019-09-28] MEDS ORDERED: OXYTOCIN 30 UNIT/500 ML PREMIX 500 ML IV PRN ×3 (06:15→13:45)
[2019-09-28] MEDS ORDERED: BUTORPHANOL 2 MG/ML VIAL. IVP PRN (06:15)
[2019-09-28] MEDS ORDERED: ACETAMINOPHEN 325 MG TABLET. PO PRN ×2 (06:15→13:45)
[2019-09-28] MEDS ORDERED: TERBUTALINE 1 MG/ML VIAL. SQ PRN (06:15)
[2019-09-28] MEDS ORDERED: IBUPROFEN 400 MG TABLET. PO PRN (06:15)
[2019-09-28] MEDS ORDERED: CITRIC ACID/SODIUM CITRATE 30 ML SOLUTION. PO PRN (06:15)
[2019-09-28] MEDS ORDERED: fentaNYL PF VIAL 100 MCG/2 ML VIAL IVP PRN (06:15)
[2019-09-28] MEDS ORDERED: 0.9 % SODIUM CHLORIDE 10 ML DISP.SYRIN. IV PRN ×2 (06:15→13:45)
[2019-09-28] MEDS ORDERED: LIDOCAINE 1% PF 30 ML VIAL. INJ PRN (06:15)
[2019-09-28] MEDS ORDERED: ONDANSETRON PF 4 MG/2 ML VIAL. IVP PRN (06:15)
[2019-09-28] MEDS: IV RINGERS,LACTATED 1000ML 1,000 ML IV SCH ×3 (06:38→22:02)
[2019-09-28 06:40] LABS: BILIRUBIN,URINE NEGATIVE (NEG); CLARITY,URINE CLOUDY; COLOR,URINE YELLOW; NITRITE,URINE NEGATIVE (NEG); PH,URINE 6.5 (<5.0-8.0); PROTEIN,URINE 30 mg/dL (NEG-TRACE); UROBILINOGEN,URINE 0.2 mg/dL (0.2 mg/dL)
[2019-09-28 07:01] LABS: AMORPHOUS SEDIMENT,UR PRESENT /HPF; BACTERIA,URINE FEW /HPF (0-FEW); RBC,URINE 0 /HPF (0-2); SQUAMOUS EPITHELIAL CELL,UR MOD /LPF; WBC,URINE >40 /HPF (0-4)
[2019-09-28 07:01] LABS: BASO % 0 % (0-3); EOS % 0 % (0-3); HEMATOCRIT 36.2 % (36.0-47.0); HEMOGLOBIN 12.2 g/dL (12.0-15.5); LYMPH # 2.4 x10^3/uL (1.0-4.8); LYMPH % 20 % (24-48); MEAN CORPUSCULAR HEMOGLOBIN 29 pg (25-35); MEAN CORPUSCULAR HGB CONC 34 g/dL (31-37); MEAN CORPUSCULAR VOLUME 87 fL (79-100); MONO # 0.5 x10^3/uL (0.0-1.1); MONO % 4 % (0-9); NEUT % 76 % (31-73); PLATELET COUNT 244 x10^3/uL (140-400); RED BLOOD COUNT 4.17 x10^6/uL (3.50-5.40); RED CELL DISTRIBUTION WIDTH 14.4 % (11.5-14.5); WHITE BLOOD COUNT 11.9 x10^3/uL (4.0-11.0)
[2019-09-28] MEDS ORDERED: OXYTOCIN PREMIX 30 UNIT/500 ML NS BAG. IV ONE (08:00)
--- NOTE | 2019-09-28 08:09 | PDOC1 ---
OB - History Hx of Present Care: Good Care Ultrasounds: Normal mid trimester US Obstetrical Complications: None Medical Complications: None Past Family/Social History * Past Medical, Surgical, Family and Obstetric Histories reviewed from chart. Rubella: Immune RPR/VDRL: Negative GBS Status: Negative HBsAG: Negative OB - Chief Complaint & HPI Date of Admission: Date of Admission: Sep 28, 2019 at 05:59 Chief Complaint/History : 3 Para: 2 EGA: 39 Reason for admission: induction of labor Indication for induction: maternal discomfort (advanced cervical dilation) Admission Nurse Assessment Rev: Yes OB - Admission Exam Physical Exam HEENT: Normal Heart: Regular Rate Lungs: Clear Abdomen: Gravid, Non tender, Soft Extremities: Edema Reflexes: Normal Cervical Dilatation: 3cm Effacement: 75% Station: -3 Membranes: Intact Heart Rate: Normal Accelerations: Accelerations Present Decelerations: No decelerations Contractions on Admission: None Text A: 39 wks IUP IOL secondary discomforts of and advanced cervical dilation P: Admit for IOL pitocin. RISHI HURST Jr, MD Sep 28, 2019 08:09
[2019-09-28 10:08] VITALS: BP 110/59
[2019-09-28] MEDS ORDERED: L&D EPIDURAL SYRINGE 50 ML ONE (10:26)
[2019-09-28] MEDS ORDERED: L&D EPIDURAL 50 ML SYRINGE. ONE (11:00)
--- NOTE | 2019-09-28 13:37 | PDOC ---
VAGINAL DELIVERY DATE DATE: 09/28/19 TIME: 13:36 : 3 Para: 3 EGA: 39 VAGINAL DELIVERY: VTX VACCUM ASSISTED: No PLACENTA: Spontaneous 8/ SEX: Male WEIGHT Weight [ 3030 gm] Nuchal Cord: Yes, Times 1 Amniotic Fluid: Clear PAIN: Epidural EPISIOTOMY: No EXTENSION: No EBL 300 ml COMPLICATIONS none CONDITION pt. stable Signs of Intrauterine Infectio: None Shoulder Dystocia: No RISHI HURST Jr, MD Sep 28, 2019 13:37
[2019-09-28] MEDS ORDERED: HYDROCORTISONE 1% TOPICAL OINTMENT 30GM TUBE. TP PRN (13:45)
[2019-09-28] MEDS ORDERED: oxyCODONE/APAP 5/325 1 TAB TABLET PO PRN (13:45)
[2019-09-28] MEDS ORDERED: PHENYLEPH/MINERAL OIL/PETROLAT RECTAL OINTMENT TUBE. RC PRN (13:45)
[2019-09-28] MEDS ORDERED: MMR per PROTOCOL. MC PRN (13:45)
[2019-09-28] MEDS ORDERED: MAG HYDROX/ALUMINUM HYD/SIMETH 30 ML ORAL.SUSP PO PRN (13:45)
[2019-09-28] MEDS ORDERED: BENZOCAINE 20% TOPICAL AEROSOL SPRAY 57GM CAN. TP PRN (13:45)
[2019-09-28] MEDS ORDERED: MAGNESIUM HYDROXIDE 2,400 MG/30 ML ORAL.SUSP. PO PRN (13:45)
[2019-09-28] MEDS ORDERED: SIMETHICONE 80 MG TAB.CHEW PO PRN (13:45)
[2019-09-28] MEDS ORDERED: ZOLPIDEM 5 MG TABLET. PO PRN (13:45)
[2019-09-28] MEDS ORDERED: diphenhydrAMINE HCL 25 MG CAPSULE PO PRN (13:45)
[2019-09-28] MEDS ORDERED: TDaP (Adacel) per PROTOCOL. MC PRN (13:45)
[2019-09-28] MEDS ORDERED: DOCUSATE SODIUM 100 MG CAPSULE. PO PRN (13:45)
[2019-09-28 15:15] VITALS: BP 145/69
[2019-09-28] MEDS: IBUPROFEN 400 MG TABLET. PO PRN ×2 (15:27→23:36)
[2019-09-28 16:15] VITALS: BP 121/69
[2019-09-28 21:00] VITALS: BP 124/81
[2019-09-28] MEDS ORDERED: miSOPROStol 200 MCG TABLET PR ONE (21:45)
[2019-09-28] MEDS ORDERED: IV RINGERS,LACTATED 500ML 500 ML IV ONE (21:45)
[2019-09-28 22:00] VITALS: BP 114/72
[2019-09-28 22:01] LABS: HEMATOCRIT 32.7 % (36.0-47.0); HEMOGLOBIN 11.3 g/dL (12.0-15.5)
[2019-09-28 22:45] VITALS: BP 134/85
[2019-09-29 00:15] VITALS: BP 135/85
[2019-09-29] MEDS ORDERED: OXYTOCIN 10 UNIT/ML VIAL. IVP ONE (01:45)
[2019-09-29 03:48] LABS: BASO # 0.1 x10^3/uL (0.0-0.2); BASO % 1 % (0-3); EOS # 0.1 x10^3/uL (0.0-0.7); EOS % 1 % (0-3); HEMATOCRIT 31.2 % (36.0-47.0); HEMOGLOBIN 10.6 g/dL (12.0-15.5); LYMPH # 2.1 x10^3/uL (1.0-4.8); LYMPH % 18 % (24-48); MEAN CORPUSCULAR HEMOGLOBIN 30 pg (25-35); MEAN CORPUSCULAR HGB CONC 34 g/dL (31-37); MEAN CORPUSCULAR VOLUME 87 fL (79-100); MONO # 0.5 x10^3/uL (0.0-1.1); MONO % 4 % (0-9); NEUT # 9.2 x10^3/uL (1.8-7.7); NEUT % 77 % (31-73); PLATELET COUNT 219 x10^3/uL (140-400); RED BLOOD COUNT 3.58 x10^6/uL (3.50-5.40); RED CELL DISTRIBUTION WIDTH 14.5 % (11.5-14.5); WHITE BLOOD COUNT 11.9 x10^3/uL (4.0-11.0)
[2019-09-29 04:00] VITALS: BP 99/56
[2019-09-29] MEDS: IV RINGERS,LACTATED 1000ML 1,000 ML IV SCH (06:02)
[2019-09-29] MEDS ORDERED: ONDANSETRON PF 4 MG/2 ML VIAL. IV PRN (07:00)
[2019-09-29] MEDS ORDERED: fentaNYL PF VIAL 100 MCG/2 ML VIAL IV PRN ×2 (07:00)
[2019-09-29] MEDS ORDERED: MORPHINE SULFATE 2 MG/ML VIAL. IV PRN (07:00)
[2019-09-29] MEDS ORDERED: IV RINGERS,LACTATED 1000ML 1,000 ML IV SCH (07:00)
[2019-09-29] MEDS ORDERED: HYDROmorphone 2 MG/ML VIAL IV PRN (07:00)
[2019-09-29] MEDS ORDERED: PROCHLORPERAZINE 10 MG/2 ML VIAL. IV PRN (07:00)
[2019-09-29 09:00] VITALS: BP 129/75
[2019-09-29] MEDS ORDERED: MULTIVITAMIN with MINERAL TABLET. PO SCH (09:00)
[2019-09-29] MEDS: FERROUS SULFATE 325 MG TABLET. PO SCH ×2 (09:45→15:24)
--- NOTE | 2019-09-29 11:55 | PDOC ---
OB Progress Note Date of Service 09/29/19 Time of Evaluation 1155 Notes Pt. feeling well. Pt. had post uterine atony requiring rectal cyctotec and additional pitocin IV. She is stable with hgb 10. Pt. will delay BTL until after 6 wks. Lab Laboratory Tests Test 09/28/19 06:20 09/28/19 06:25 09/28/19 21:55 09/29/19 03:40 Urine Collection Type Unknown Urine Color Yellow Urine Clarity Cloudy Urine pH 6.5 (<5.0-8.0) Urine Specific [place] 1.020 (1.000-1.030) Urine Protein 30 mg/dL (NEG-TRACE) Urine Glucose (UA) Negative mg/dL (NEG) Urine Ketones (Stick) Trace mg/dL (NEG) Urine Blood Negative (NEG) Urine Nitrite Negative (NEG) Urine Bilirubin Negative (NEG) Urine Urobilinogen Dipstick 0.2 mg/dL (0.2 mg/dL) Urine Leukocyte Esterase Moderate (NEG) Urine RBC 0 /HPF (0-2) Urine WBC >40 /HPF (0-4) Urine Squamous Epithelial Cells Mod /LPF Urine Amorphous Sediment Present /HPF Urine Bacteria Few /HPF (0-FEW) Urine Mucus Mod /LPF White Blood Count 11.9 x10^3/uL (4.0-11.0) 11.9 x10^3/uL (4.0-11.0) Red Blood Count 4.17 x10^6/uL (3.50-5.40) 3.58 x10^6/uL (3.50-5.40) Hemoglobin 12.2 g/dL (12.0-15.5) 11.3 g/dL (12.0-15.5) 10.6 g/dL (12.0-15.5) Hematocrit 36.2 % (36.0-47.0) 32.7 % (36.0-47.0) 31.2 % (36.0-47.0) Mean Corpuscular Volume 87 fL (79-100) 87 fL (79-100) Mean Corpuscular Hemoglobin 29 pg (25-35) 30 pg (25-35) Mean Corpuscular Hemoglobin Concent 34 g/dL (31-37) 34 g/dL (31-37) Red Cell Distribution Width 14.4 % (11.5-14.5) 14.5 % (11.5-14.5) Platelet Count 244 x10^3/uL (140-400) 219 x10^3/uL (140-400) Neutrophils (%) (Auto) 76 % (31-73) 77 % (31-73) Lymphocytes (%) (Auto) 20 % (24-48) 18 % (24-48) Monocytes (%) (Auto) 4 % (0-9) 4 % (0-9) Eosinophils (%) (Auto) 0 % (0-3) 1 % (0-3) Basophils (%) (Auto) 0 % (0-3) 1 % (0-3) Neutrophils # (Auto) 9.0 x10^3/uL (1.8-7.7) 9.2 x10^3/uL (1.8-7.7) Lymphocytes # (Auto) 2.4 x10^3/uL (1.0-4.8) 2.1 x10^3/uL (1.0-4.8) Monocytes # (Auto) 0.5 x10^3/uL (0.0-1.1) 0.5 x10^3/uL (0.0-1.1) Eosinophils # (Auto) 0.0 x10^3/uL (0.0-0.7) 0.1 x10^3/uL (0.0-0.7) Basophils # (Auto) 0.0 x10^3/uL (0.0-0.2) 0.1 x10^3/uL (0.0-0.2) Treponema pallidum Antibody Nonreactive (Nonreactive) Laboratory Tests Test 09/28/19 21:55 09/29/19 03:40 Hemoglobin 11.3 g/dL (12.0-15.5) 10.6 g/dL (12.0-15.5) Hematocrit 32.7 % (36.0-47.0) 31.2 % (36.0-47.0) White Blood Count 11.9 x10^3/uL (4.0-11.0) Red Blood Count 3.58 x10^6/uL (3.50-5.40) Mean Corpuscular Volume 87 fL (79-100) Mean Corpuscular Hemoglobin 30 pg (25-35) Mean Corpuscular Hemoglobin Concent 34 g/dL (31-37) Red Cell Distribution Width 14.5 % (11.5-14.5) Platelet Count 219 x10^3/uL (140-400) Neutrophils (%) (Auto) 77 % (31-73) Lymphocytes (%) (Auto) 18 % (24-48) Monocytes (%) (Auto) 4 % (0-9) Eosinophils (%) (Auto) 1 % (0-3) Basophils (%) (Auto) 1 % (0-3) Neutrophils # (Auto) 9.2 x10^3/uL (1.8-7.7) Lymphocytes # (Auto) 2.1 x10^3/uL (1.0-4.8) Monocytes # (Auto) 0.5 x10^3/uL (0.0-1.1) Eosinophils # (Auto) 0.1 x10^3/uL (0.0-0.7) Basophils # (Auto) 0.1 x10^3/uL (0.0-0.2) Medications Current Medications Sodium Chloride (Normal Saline Flush) 3 ml QSHIFT PRN IV AFTER MEDS AND BLOOD DRAWS; Start 09/28/19 at 06:15 Ringer's Solution 1,000 ml @ 125 mls/hr Q8H IV Last administered on 09/28/19at 09:37; Start 09/28/19 at 06:02 Butorphanol Tartrate (Stadol) 2 mg PRN Q1HR PRN IVP Severe labor pain; Start 09/28/19 at 06:15 Fentanyl Citrate (Fentanyl 2ml Vial) 100 mcg PRN Q30MIN PRN IVP Severe pain; Start 09/28/19 at 06:15 Acetaminophen (Tylenol) 1,000 mg PRN Q6HRS PRN PO MILD PAIN / TEMP > 100.3'F; Start 09/28/19 at 06:15; Status Cancel Ondansetron HCl (Zofran) 4 mg PRN Q4HRS PRN IVP NAUSEA/VOMITING; Start 09/28/19 at 06:15 Citric Acid/ Sodium Citrate (Bicitra) 30 ml 1X PRN PRN PO DYSPEPSIA; Start 09/28/19 at 06:15; Stop 09/29/19 at 06:14; Status DC Terbutaline Sulfate (Brethine) 0.25 mg 1X PRN PRN SQ SEE COMMENTS; Start 09/28/19 at 06:15; Stop 09/29/19 at 06:14; Status DC Lidocaine HCl (Xylocaine 1% Pf 30ml Vial) 30 ml 1X PRN PRN INJ SEE COMMENTS; Start 09/28/19 at 06:15; Stop 09/30/19 at 06:14 Oxytocin/Sodium Chloride 500 ml @ 0 mls/hr CONT PRN IV SEE I/O RECORD Last administered on 09/29/19at 01:51; Start 09/28/19 at 06:15 Oxytocin/Sodium Chloride 500 ml @ 0 mls/hr CONT PRN PRN IV Post delivery bleeding; Start 09/28/19 at 06:15 Ibuprofen (Motrin) 800 mg PRN Q6HRS PRN PO PAIN; Start 09/28/19 at 06:15; Status Cancel Fentanyl Citrate 50 ml @ As Directed STK-MED ONCE .ROUTE ; Start 09/28/19 at 10:26; Stop 09/28/19 at 10:26; Status DC Oxytocin/Sodium Chloride (Oxytocin Premix Infusion) 30 unit STK-MED ONCE IV ; Start 09/28/19 at 08:00; Stop 09/28/19 at 13:22; Status DC Sodium Chloride (Normal Saline Flush) 10 ml QSHIFT PRN IV AFTER MEDS AND BLOOD DRAWS; Start 09/28/19 at 13:45 Oxytocin/Sodium Chloride 500 ml @ 62.5 mls/hr CONT PRN IV SEE I/O RECORD; Start 09/28/19 at 13:45; Stop 09/28/19 at 21:44; Status DC Acetaminophen (Tylenol) 650 mg PRN Q6HRS PRN PO MILD PAIN / TEMP > 100.3'F Last administered on 09/29/19at 09:44; Start 09/28/19 at 13:45 Ibuprofen (Motrin) 800 mg PRN Q8HRS PRN PO INFLAMMATION/PAIN PREVENTION Last administered on 09/28/19at 23:36; Start 09/28/19 at 13:45 Docusate Sodium (Colace) 100 mg PRN BID PRN PO HARD STOOL Last administered on 09/29/19at 09:45; Start 09/28/19 at 13:45 Magnesium Hydroxide (Milk Of Magnesia) 2,400 mg PRN DAILY PRN PO CONSTIPATION; Start 09/28/19 at 13:45 Al Hydroxide/Mg Hydroxide (Mylanta Plus Xs) 30 ml PRN Q4HRS PRN PO HEARTBURN / GAS; Start 09/28/19 at 13:45 Simethicone (Gas-X) 80 mg PRN AFTMEALHC PRN PO GAS / BLOATING; Start 09/28/19 at 13:45 Diphenhydramine HCl (Benadryl) 25 mg PRN Q6HRS PRN PO ITCHING; Start 09/28/19 at 13:45 Benzocaine (Americaine) 1 spray PRN QID PRN TP TOPICAL PAIN Last administered on 09/28/19at 15:27; Start 09/28/19 at 13:45 Phenyleph/Shark Oil/Min Oil/Petrol (Preparation H) 1 afua PRN QID PRN RC RECTAL PAIN; Start 09/28/19 at 13:45 Hydrocortisone (Cortaid) 1 afua PRN QID PRN TP PERINEAL PAIN; Start 09/28/19 at 13:45 Ferrous Sulfate (Feosol) 325 mg BIDWMEALS PO Last administered on 09/29/19at 09:45; Start 09/29/19 at 08:00 Zolpidem Tartrate (Ambien) 5 mg PRN QHS PRN PO INSOMNIA, MAY REPEAT X1; Start 09/28/19 at 13:45 Info (Do NOT chart on this placeholder) 1 ea 1X PRN PRN MC SEE COMMENTS; Start 09/28/19 at 13:45 Info (Do NOT chart on this placeholder) 1 ea 1X PRN PRN MC SEE COMMENTS; Start 09/28/19 at 13:45 Oxycodone/ Acetaminophen (Percocet 5/325) 2 tab PRN Q4HRS PRN PO MODERATE PAIN, SEVERE PAIN; Start 09/28/19 at 13:45 Multivitamins (Thera M Plus) 1 tab DAILY PO Last administered on 09/29/19at 09:44; Start 09/29/19 at 09:00 Ondansetron HCl (Zofran) 4 mg PRN Q6HRS PRN IV NAUSEA/VOMITING; Start 09/29/19 at 07:00; Stop 09/30/19 at 06:59 Fentanyl Citrate (Fentanyl 2ml Vial) 25 mcg PRN Q5MIN PRN IV MILD PAIN 1-3; Start 09/29/19 at 07:00; Stop 09/30/19 at 06:59 Fentanyl Citrate (Fentanyl 2ml Vial) 50 mcg PRN Q5MIN PRN IV MODERATE TO SEVERE PAIN; Start 09/29/19 at 07:00; Stop 09/30/19 at 06:59 Morphine Sulfate (Morphine Sulfate) 1 mg PRN Q10MIN PRN IV SEVERE PAIN 7-10; Start 09/29/19 at 07:00; Stop 09/30/19 at 06:59 Ringer's Solution 1,000 ml @ 30 mls/hr Q24H IV ; Start 09/29/19 at 07:00; Stop 09/29/19 at 18:59 Hydromorphone HCl (Dilaudid) 0.5 mg PRN Q10MIN PRN IV SEV PAIN, Second choice; Start 09/29/19 at 07:00; Stop 09/30/19 at 06:59 Prochlorperazine Edisylate (Compazine) 5 mg PACU PRN PRN IV NAUSEA, MRX1; Start 09/29/19 at 07:00; Stop 09/30/19 at 06:59 Misoprostol (Cytotec 200mcg Tab) 800 mcg 1X ONCE MS Last administered on 09/28/19at 21:45; Start 09/28/19 at 21:45; Stop 09/28/19 at 21:46; Status DC Ringer's Solution 500 ml @ 500 mls/hr 1X ONCE IV Last administered on 09/28/19at 21:45; Start 09/28/19 at 21:45; Stop 09/28/19 at 22:44; Status DC Oxytocin (Pitocin) 30 unit 1X ONCE IVP ; Start 09/29/19 at 01:45; Stop 09/29/19 at 01:46; Status DC Active Scripts Active Ibuprofen 400 Mg Tablet 800 Mg PO PRN Q8HRS PRN Vitamins ( Vits W-Ca,Fe,Fa(<1MG)) 1 Each Tablet 1 Tab PO DAILY Reported Aspirin 81 Mg Tab.chew 1 Tab PO DAILY Exam Abd: soft, mild tender, fundus firm Assessment PPD# 1 s/p Plan of Care: Continue current Tx, Mgmt RISHI HURST Jr, MD Sep 29, 2019 11:55
[2019-09-29] MEDS: IBUPROFEN 400 MG TABLET. PO PRN (15:24)
[2019-09-29 15:35] VITALS: BP 119/79
[2019-09-29 20:43] VITALS: BP 124/70
[2019-09-30 05:08] VITALS: BP 143/98
[2019-09-30 05:10] VITALS: BP 143/95
[2019-09-30] MEDS: IBUPROFEN 400 MG TABLET. PO PRN (05:16)
[2019-09-30] MEDS ORDERED: IBUP-1027 PO (06:31)
--- NOTE | 2019-09-30 06:32 | DISCH ---
DISCHARGE INSTRUCTIONS Condition on Discharge Condition on Discharge: Stable Activity After Discharge Activity Instructions for Disc: Activity as tolerated Lifting Instructions after Dis: No heavy lifting, No pulling or pushing, Do not lift >10 pounds Exercise Instruction after Dis: Walk 15 min, 3 x per day Driving Instructions after Dis: Do not drive today Weight Bearing Status after Di: As tolerated Diet after Discharge Diet after Discharge: Regular Diet Texture: Regular Contacting the DRMalachi after DC Call your doctor for: Concerns you may have Follow-Up Follow up with: Dr. Ramírez in 6 wks Treatment/Equipment after DC Adaptive Equipment Issued: None RISHI RAMÍREZ Jr, MD Sep 30, 2019 06:32
[2019-09-30 10:30] VITALS: BP 134/88
--- NOTE | 2019-10-07 15:35 | DS ---
DATE OF DISCHARGE: 09/30/2019 ADMITTING DIAGNOSIS: Term gestation, for induction of labor. DISCHARGE DIAGNOSIS: Term gestation, for induction of labor. SURGEON: Eamon Ramírez MD PROCEDURE: Vaginal delivery. HOSPITAL COURSE: Term gestation, presented for induction of labor secondary to maternal discomforts of . The patient delivered vaginally without any complications, went home on day #2 in good condition. DISCHARGE DIET: Regular diet. DISCHARGE INSTRUCTIONS: Pelvic rest x 6 weeks. FOLLOWUP: The patient is to follow up in clinic in 6 weeks. EAMON RAMÍREZ MD DR: KAVON/mendoza JOB#: [id number] / [id number]
== END 2019-09-30 11:00 | disposition home or self-care (01) | DRG 807 ==
LOC: 3 SO LND 05:59 → 3 NORTH 16:00
PROVIDERS: ADMIT Obstetrics & Gynecology; ATTEND Obstetrics & Gynecology
PROC: 10E0XZZ Delivery of Products of Conception, External Approach (ICD-10-PCS; principal; 2019-09-28)
PROC: 3E033VJ Introduction of Other Hormone into Peripheral Vein, Percutaneous Approach (ICD-10-PCS; 2019-09-28)
PROC: 00HU33Z Insertion of Infusion Device into Spinal Canal, Percutaneous Approach (ICD-10-PCS; 2019-09-28)
PROC: 3E0R3BZ Introduction of Anesthetic Agent into Spinal Canal, Percutaneous Approach (ICD-10-PCS; 2019-09-28)
DX: O69.81X0 Labor and delivery complicated by cord around neck, without compression, not applicable or unspecified (principal); Z37.0 Single live birth; O75.89 Other specified complications of labor and delivery; Z3A.39 39 weeks gestation of pregnancy
CPT/HCPCS: 36415; 81001; 85014; 85018; 85025; 86592; 86850; 86900; 86901; 87086; J2590; J3010; J7120; G0378

== ENCOUNTER → 2019-11-22 | Outpatient (CLI) | payer OTHER | END | disposition home or self-care (01) | LOC: LAB 13:30 | PROVIDERS: ATTEND Obstetrics & Gynecology | DX: Z11.59 Encounter for screening for other viral diseases (principal) | CPT/HCPCS: U0003-CS ==

== ENCOUNTER 2019-11-25 07:34 | Day surgery (SDC) | payer OTHER ==
[~2019-11-25 07:34] MED LIST changes: +BUPIVACAINE-EPI 0.25%-1:200000 MPF 30 ML VIAL. ONE; +HYDROmorphone 2 MG/ML VIAL IV PRN; +IV RINGERS,LACTATED 1000ML 1,000 ML IV SCH; +MORPHINE SULFATE 2 MG/ML VIAL. IV PRN; +ONDANSETRON PF 4 MG/2 ML VIAL. IV PRN; +PROCHLORPERAZINE 10 MG/2 ML VIAL. IV PRN; +fentaNYL PF VIAL 100 MCG/2 ML VIAL IV PRN
[2019-11-25] MEDS ORDERED: DEXAMETHASONE SOD PHOS 4 MG/ML VIAL ONE (09:36)
[2019-11-25] MEDS ORDERED: PROPOFOL 10 MG/ML (20ML) VIAL. IV ONE (09:36)
[2019-11-25] MEDS ORDERED: ONDANSETRON PF 4 MG/2 ML VIAL. ONE (09:36)
[2019-11-25] MEDS ORDERED: LIDOCAINE 2% PF 5 ML VIAL. ONE (09:36)
[2019-11-25] MEDS ORDERED: MIDAZOLAM HCL/PF 2 MG/2 ML VIAL. ONE (09:37)
[2019-11-25] MEDS ORDERED: ROCURONIUM 50 MG/5 ML VIAL. ONE (09:37)
[2019-11-25] MEDS ORDERED: fentaNYL PF VIAL 100 MCG/2 ML VIAL ONE (09:37)
[2019-11-25] MEDS ORDERED: SUCCINYLCHOLINE 200 MG/10 ML VIAL. ONE (09:37)
[2019-11-25] MEDS ORDERED: KETOROLAC 30 MG/ML VIAL. ONE (10:33)
[2019-11-25] MEDS ORDERED: NEOSTIGMINE METHYLSULFATE 5 MG/5 ML SYRINGE. ONE (10:34)
[2019-11-25] MEDS ORDERED: GLYCOPYRROLATE 1 MG/5 ML VIAL. ONE (10:34)
[2019-11-25] MEDS ORDERED: SEVOFLURANE 31 TO 60 MINUTES. IH ONE (10:42)
--- NOTE | 2019-11-25 10:49 | PDOC ---
BRIEF OPERATIVE NOTE Date: Nov 25, 2019 Pre-Op Diagnosis Sterilization Post-Op Diagnosis Same Procedure Performed LPSC BTL via ernesto. salpingectomy Surgeon Dr. Ramírez Aerial Photographer Healthcare Liaison: Meliza Anesthesia Type: General Blood Loss 5 ml Specimens Obtained ernesto. fallopian tubes Findings nml size uterus, nml fallopian tubes and ovaries ernesto. Complications none Operative Note see dictation RISHI RAMÍREZ Jr, MD Nov 25, 2019 10:49
--- NOTE | 2019-11-25 10:51 | DISCH ---
DISCHARGE INSTRUCTIONS Condition on Discharge Condition on Discharge: Stable Activity After Discharge Activity Instructions for Disc: Activity as tolerated Lifting Instructions after Dis: No heavy lifting, No pulling or pushing, Do not lift >10 pounds Exercise Instruction after Dis: Walk 15 min, 3 x per day Driving Instructions after Dis: Do not drive today Weight Bearing Status after Di: As tolerated Diet after Discharge Diet after Discharge: Regular Diet Texture: Regular Contacting the DRMalachi after DC Call your doctor for: Concerns you may have Follow-Up Follow up with: Dr. Ramírez in 1 wk Treatment/Equipment after DC Adaptive Equipment Issued: None RISHI RAMÍREZ Jr, MD Nov 25, 2019 10:51
[2019-11-25] MEDS ORDERED: OXYC-325 PO (10:57)
--- NOTE | 2019-11-25 11:13 | OP ---
DATE OF SURGERY: 11/25/2019 PREOPERATIVE DIAGNOSIS: Sterilization. POSTOPERATIVE DIAGNOSIS: Sterilization. PROCEDURE: Laparoscopic BTL via bilateral salpingectomy. SURGEON: Rishi Ramírez MD COLLECTIONS OFFICER: Danuta. ANESTHESIA: GETA. ESTIMATED BLOOD LOSS: 5 mL. COMPLICATIONS: None. FINDINGS: Normal size uterus, normal fallopian tubes and ovaries bilaterally. SUMMARY: A 24-year-old 3, para 3, desires permanent sterilization, who was counseled on the risks, benefits and expectations and voiced clear understanding to proceed. DESCRIPTION OF PROCEDURE: The patient was taken to surgery suite and placed in dorsal lithotomy position. She was prepped with Betadine solution for vaginal prep and ChloraPrep for abdominal prep. After adequate anesthesia, bivalve speculum was placed vaginally. Anterior lip of the cervix was grasped with single tooth tenaculum. Uterine acorn manipulator was then placed. The bivalve speculum was removed. Attention was now placed on abdomen. Small transverse skin incision was made just below the umbilicus with a scalpel. A Veress needle was then placed through the infraumbilical incision site. The abdomen was allowed to insufflate up to 1-1/2 liters CO2 gas. The Veress needle was then removed, 5 mm trocar was placed. Scope was positioned. Uterus appeared normal sized. Fallopian tubes and ovaries appeared normal bilaterally. Two additional incisions were made in the left lower quadrant, which a 5-mm trocar and an 8-mm trocar were placed. With aid of [place] retractors and EnSeal device, distal right salpingectomy was performed. Same process took place with left adnexa. Pedicles were hemostatic. The trocars were then removed under direct visualization. The abdomen was allowed to deflate as much as possible along with mechanical manipulation. The three skin incisions were reapproximated using 4-0 Vicryl suture in subcuticular manner. A 0.25% Marcaine with epinephrine was injected at each incision site. [place] uterine manipulator was then removed along with the single tooth tenaculum. The patient tolerated the procedure well and was taken to recovery room in stable condition. Sponge and needle count correct x 3. RISHI RAMÍREZ MD DR: KAVON/mendoza JOB#: [id number] / [id number]
[2019-11-25] MEDS ORDERED: oxyCODONE/APAP 5/325 1 TAB TABLET PO ONE ×2 (11:30)
[2019-11-25 14:21] VITALS: BP 115/70
--- NOTE | 2019-11-26 15:08 | PATHOLOGY ---
[facility] Accession Number: [id number] . 01 Material submitted: . PART A: fallopian tube - RIGHT FALLOPIAN TUBE. Modifiers: right PART B: fallopian tube - LEFT FALLOPIAN TUBE. Modifiers: left . 01 Clinical history: . Sterilization . 02 Diagnosis: A. Right tubal ligation: - Segment of fallopian tube confirmed. . B. Left tubal ligation: - Segment of fallopian tube confirmed. . (JPM:ok; 11/26/2019) MBR 11/26/2019 1009 Local . 02 Electronically signed: . Jamaal Hernandez MD, Pathologist NPI- [id number] . 01 Gross description: . A. The specimen is received in formalin, labeled "Bia Maynard, right fallopian tube". Received is a fimbriated fallopian tube measuring 3.9 cm in length by 0.5 cm in diameter. The serosal surface is pink-purple and glistening in appearance. Sectioning reveals a patent lumen. The specimen is submitted representatively in cassette A1. . B. The specimen is received in formalin, labeled "Bia Maynard, left fallopian tube". Received is a fimbriated fallopian tube measuring 4.1 cm in length by 0.5 cm in diameter. The serosal surface is pink-purple and glistening in appearance. Sectioning reveals a pinpoint to patent lumen. The specimen is submitted representatively in cassette B1. (CAA; 11/25/2019) QA/QA 11/25/2019 1715 Local . 02 Pathologist provided ICD-10: Z30.2 . 02 CPT . 190512, 801122 Specimen Comment: A courtesy copy of this report has been sent to [phone] Specimen Comment: Report sent to Performed at: [address] [facility] [address], [place], [place] [id number] MD Rakesh Ayon MD Phone: [phone] Performed at: 02 [facility] [address] [place], [place] [id number] MD Jamaal Hernandez MD Phone: [phone]
== END 2019-11-25 14:36 | disposition home or self-care (01) ==
LOC: SURG 07:34
PROVIDERS: ATTEND Obstetrics & Gynecology
DX: Z30.2 Encounter for sterilization (principal)
CPT/HCPCS: 58661; 81025; A7015; J0330; J1100; J1885; J2250; J2405; J2704; J2710; J3010; J3490